=== PATIENT | male | born 1995 ===

== ENCOUNTER 2017-09-13 13:06 | Emergency (ER) | payer BC ==
[2017-09-13 13:37] VITALS: BP 133/54
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
--- NOTE | 2017-09-13 14:21 | RAD ---
Indication: Right shoulder pain. 4 views of the right shoulder demonstrates no fracture. No other bone or joint abnormality is identified. IMPRESSION: No fracture of the right shoulder is noted.
== END 2017-09-13 14:43 | disposition home or self-care (01) ==
LOC: UCCORT 13:06
DX: S43.401A Unspecified sprain of right shoulder joint, initial encounter (principal); V28.4XXA Motorcycle driver injured in noncollision transport accident in traffic accident, initial encounter; Y92.410 Unspecified street and highway as the place of occurrence of the external cause
CPT/HCPCS: 99213; G0463